=== PATIENT | male | born 1950 | race Hispanic/Latino ===

== ENCOUNTER 2017-11-21 08:57 | Emergency (ER) | payer OTHER ==
--- NOTE | 2017-11-21 10:24 | EDPHYS ---
Physician Documentation [facility] Name: Derick Marie Age: 67 yrs Sex: Male : 1950 Arrival Date: 11/21/2017 Time: 09:02 Bed 14 Private MD: ED Physician Emir Mortensen HPI: 11/21 09:19 This 67 yrs old Male presents to ER via Ambulatory with complaints of Leg Pain.cp 09:19 The patient presents with an injury, pain, that is acute. The complaints affect the cp lateral aspect of left knee. Context: The problem was sustained outdoors, resulted from the patient falling, the patient can fully bear weight, the patient is able to ambulate, without difficulty. Onset: The symptoms/episode began/occurred 2 day(s) ago. Associated signs and symptoms: Pertinent negatives calf tenderness, fever, numbness. Historical: - Allergies: 09:13 No Known Allergies; ss - PMHx: 09:13 Diabetes - IDDM; High Cholesterol; Hypertension; Myocardial infarction; ss - PSHx: 09:13 left shoulder; ss - Immunization history:: Adult Immunizations up to date. - Social history:: Smoking status: Patient/guardian denies using tobacco. ROS: 09:20 Eyes: Negative for injury, pain, redness, and discharge, ENT: Negative for injury, cp pain, and discharge. 09:20 Constitutional: Negative for body aches, chills, fever, poor PO intake. 09:20 Cardiovascular: Negative for chest pain, edema. 09:20 Respiratory: Negative for cough, shortness of breath, wheezing. 09:20 Abdomen/GI: Negative for abdominal pain. 09:20 Back: Negative for pain at rest, pain with movement. 09:20 MS/extremity: Positive for pain, of the lateral aspect of left knee, Negative for decreased range of motion, deformity. 09:20 Skin: Negative for cellulitis, rash. 09:20 Neuro: Negative for numbness, weakness. 09:20 All other systems are negative. Exam: 09:22 Head/Face: Normocephalic, atraumatic. cp 09:22 Constitutional: The patient appears in no acute distress, alert, awake, well developed, well nourished. 09:22 Eyes: Periorbital structures: appear normal, Conjunctiva: normal, no exudate, no injection, Lids and lashes: appear normal, bilaterally. 09:22 ENT: External ear(s): are unremarkable, Nose: is normal, Mouth: is normal. 09:22 Chest/axilla: Inspection: normal. 09:22 Cardiovascular: Rate: normal. 09:22 Respiratory: the patient does not display signs of respiratory distress, Respirations: normal, no use of accessory muscles, no retractions, no splinting, no tachypnea. 09:22 Abdomen/GI: Exam negative for discomfort, distension, guarding, Inspection: abdomen appears normal. 09:22 Musculoskeletal/extremity: Sensation intact. Joints: All joints are normal except the cp left knee displays lateral tenderness, Weight bearing: able to fully bear weight, Tendon exam: specific tendon testing normal through active and passive range of motion Vital Signs: 09:13 BP 124 / 74; Pulse 63; Resp 16; Temp 98.2(TE); Pulse Ox 100% on R/A; Weight 73.03 kg; ss Height 5 ft. 8 in. (172.72 cm); Pain 7/10; 09:13 Body Mass Index 24.48 (73.03 kg, 172.72 cm) ss MDM: 09:14 Patient medically screened. cp 10:22 Data reviewed: vital signs, nurses notes, radiologic studies, plain films, and as a cp result, I will discharge patient. 11/21 09:19 Order name: XRAY Knee LEFT 3 view; Complete Time: 10:55 cp 11/21 10:56 Interpretation: Report reviewed. cp 11/21 10:24 Order name: Crutches; Complete Time: 10:32 cp Administered Medications: No medications were administered Disposition: 11/21/17 10:23 Discharged to Home. Impression: Pain in left knee. - Condition is Stable. - Discharge Instructions: Elastic Bandage and RICE, Knee Pain. - Prescriptions for Naprosyn 500 mg Oral Tablet - take 1 tablet by ORAL route 2 times per day take with food; 20 tablet. - Medication Reconciliation Form, Thank You Letter, Antibiotic Education, Prescription Opioid Use form. - Follow up: Private Physician; When: 5 - 6 days; Reason: Recheck today's complaints. - Problem is new. - Symptoms are unchanged. Addendum: 11/22/2017 13:17 Co-signature as Attending Physician, Emir Mortensen MD. g s Signatures: Dispatcher [employer] Sharyn Mariano RN RN iw Marge David RN RN ss Herb Jonas PA PA cp Starr, Gregory, MD MD gs Corrections: (The following items were deleted from the chart) 11/21 10:32 10:24 Hieu wrap-joint ordered. lamar rush
--- NOTE | 2017-11-21 10:24 | ER ---
Nurse's Notes [facility] Name: Derick Marie Age: 67 yrs Sex: Male : 1950 Arrival Date: 11/21/2017 Time: 09:02 Bed 14 Private MD: Diagnosis: Pain in left knee Presentation: 11/21 09:12 Presenting complaint: Patient states: L knee pain x 2 days. Transition of care: patient ss was not received from another setting of care. Onset of symptoms was November 18, 2017. Care prior to arrival: None. 09:12 Method Of Arrival: Ambulatory ss 09:12 Acuity: TAMERA 4 ss Triage Assessment: 10:32 General: Behavior is calm, cooperative. iw Historical: - Allergies: 09:13 No Known Allergies; ss - PMHx: 09:13 Diabetes - IDDM; High Cholesterol; Hypertension; Myocardial infarction; ss - PSHx: 09:13 left shoulder; ss - Immunization history:: Adult Immunizations up to date. - Social history:: Smoking status: Patient/guardian denies using tobacco. Screenin:43 Abuse screen: Denies threats or abuse. Denies injuries from another. Nutritional iw screening: No deficits noted. Tuberculosis screening: No symptoms or risk factors identified. Fall Risk None identified. Assessment: 09:23 General: Appears in no apparent distress. comfortable. Pain: Complains of pain in iw lateral aspect of left knee. Neuro: Level of Consciousness is awake, alert, obeys commands, Oriented to person, place, time, situation, Moves all extremities. Full function. Cardiovascular: Patient's skin is warm and dry. Respiratory: Respiratory effort is even, unlabored. Derm: Skin is pink, warm \T\ dry. normal. Musculoskeletal: Range of motion: intact in all extremities, Reports pain in lateral aspect of left knee. Vital Signs: 09:13 BP 124 / 74; Pulse 63; Resp 16; Temp 98.2(TE); Pulse Ox 100% on R/A; Weight 73.03 kg; ss Height 5 ft. 8 in. (172.72 cm); Pain 7/10; 09:13 Body Mass Index 24.48 (73.03 kg, 172.72 cm) ss ED Course: 09:02 Patient arrived in ED. sb2 09:12 Triage completed. ss 09:13 Arm band placed on right wrist. ss 09:14 Page, Herb, PA is PHCP. cp 09:14 Emir Mortensen MD is Attending Physician. cp 09:14 Sharyn Pandya, RN is Primary Nurse. iw 09:23 Patient moved to radiology via wheelchair. kw1 09:43 No provider procedures requiring assistance completed. Patient did not have IV access iw during this emergency room visit. 09:47 XRAY Knee LEFT 3 view In Process Unspecified. EDMS 09:47 X-ray completed. Patient tolerated procedure well. Patient moved back from radiology. kw1 10:33 Patient has correct armband on for positive identification. iw Administered Medications: No medications were administered Outcome: 10:23 Discharge ordered by MD. cp 10:32 Discharged to home ambulatory, with crutches. iw 10:32 Condition: good 10:32 Discharge instructions given to patient, Instructed on discharge instructions, follow up and referral plans. medication usage, crutch walking, Demonstrated understanding of instructions, follow-up care, medications, crutch walking, Prescriptions given X 1. 10:33 Patient left the ED. iw Signatures: Dispatcher [employer] EDMS Sharyn Pandya, RN SHON iw Marge David RN RN Herb Rodriguez PA PA cp Maryana German kw1 Tiffany Chu sb2
--- NOTE | 2017-11-21 10:39 | RAD REPORT ---
EXAM DESCRIPTION: RAD - Knee Left 3 View - 11/21/2017 9:50 am CLINICAL HISTORY: Fall, knee pain COMPARISON: None. FINDINGS: No gross fracture deformity is seen. However, there is ill-defined lucency in the midline tibial plateau questionable for fracture. A joint effusion is present which may be indirect evidence for fracture. Patella and distal femur appear intact. Minimal medial compartment degenerative changes are present. No foreign body in the soft tissues. Findings discussed with the referring clinician 10:35 a.m.. IMPRESSION: Questionable midline tibial plateau fracture warranting further evaluation with either M R imaging or thin section CT imaging if the patient has clinical presentation for fracture. Small joint effusion is present. Degenerative changes are minimal.
== END 2017-11-21 10:33 | disposition home or self-care (01) ==
LOC: ER 08:57
DX: M25.562 Pain in left knee (principal); W18.30XA Fall on same level, unspecified, initial encounter; Y93.9 Activity, unspecified; Y92.89 Other specified places as the place of occurrence of the external cause; I10 Essential (primary) hypertension
CPT/HCPCS: 99283

== ENCOUNTER 2018-01-06 16:18 | Emergency (ER) | payer OTHER ==
[2018-01-06 17:37] LABS: Absolute Lymphocytes (CBC) 2.2 K/uL (0.7-4.9); Absolute Monocytes 0.4 K/uL (0.1-1.3); Absolute Neutrophil 2.7 K/uL (1.8-8.0); Basophils % 0.7 % (0-1.3); Eosinophils % 2.6 % (0-4.4); Hematocrit 42.2 % (39.6-49.0); Lymphocytes % 40.7 % (15.3-44.8); MCH 31.4 pg (27.0-35.0); MCV 93.1 fL (80-100); MPV 9.1 fL (7.6-11.3); Monocytes % 7.3 % (3.3-12.3); RBC Red Blood Cell Count 4.53 M/uL (4.33-5.43)
--- NOTE | 2018-01-06 17:49 | RAD REPORT ---
EXAM DESCRIPTION: CT - Stone Protocol - 01/06/2018 5:35 pm CLINICAL HISTORY: Flank pain. COMPARISON: None. TECHNIQUE: Axial images were obtained without oral or IV contrast. Lack of contrast limits solid org an and vascular assessment. The [id number] spans the entirety of the system partially obscuring uppermost abdomen and lung bases. Coronal reformatted images were obtained and reviewed. All CT scans are performed using dose optimization technique as appropriate and may include automated exposure control or mA/KV adjustment according to patient size. FINDINGS: The lower lung rojas are clear. Imaged portions of the liver and spleen show no suspicious findings on non-contrast imaging.Small sub centimeter or cyst in the right lobe liver present. Cholecystectomy clips are noted. The pancreas and adrenal glands are normal. No pathologic lymphadenopathy in the abdomen or pelvis. Several small caliceal calculi are noted in the right kidney, largest measuring 3 mm. Parapelvic cyst s are noted on the left with a punctate calculus in the superior pole. No ureter stones or hydronephr osis seen bilaterally. No bladder stones. No bowel obstruction, free air, free fluid or abscess. Normal appendix noted. No significant bony abnormality. No fracture seen. IMPRESSION: Bilateral nonobstructing nephrolithiasis as detailed. No acute finding demonstrated
[2018-01-06 18:00] LABS: Albumin 4.2 g/dL (3.2-5.5); Bilirubin Direct 0.2 mg/dL (0-0.2); Bilirubin Total 1.8 mg/dL (0.3-1.2); Protein, Total 7.2 g/dL (6.0-8.3)
[2018-01-06 18:20] LABS: Urine Blood NEGATIVE (NEG); Urine Glucose NEGATIVE (NEG); Urine Protein TRACE (NEG); Urine Specific Gravity >1.030 (1.005-1.030)
[2018-01-06] MEDS ORDERED: KETOROLAC 30 MG/ML INJ ONE (18:29)
[2018-01-06 18:34] LABS: Urine Bacteria <20 /HPF (NONE SEEN); Urine Culture Reflex Order NOT NEEDED; Urine Mucus 2+ /HPF (NONE SEEN); Urine RBC <5 /HPF (NONE SEEN)
--- NOTE | 2018-01-06 18:40 | EDPHYS ---
Physician Documentation [facility] Name: Derick Marie Age: 67 yrs Sex: Male : 1950 Arrival Date: 01/06/2018 Time: 16:21 Bed 12 Private MD: ED Physician Emir Mortensen HPI: 01/06 16:50 This 67 yrs old Male presents to ER via Ambulatory with complaints of Back cp Pain. 16:50 The patient complains of pain in the right lower lateral abdomen. cp 16:50 The pain does not radiate. cp 16:50 Onset: The symptoms/episode began/occurred yesterday. Associated signs and symptoms: cp Pertinent negatives: diarrhea, dysuria, fever, hematuria, pain radiating to the lower extremities, vomiting. Patient reports pain started after lifting heavy object yesterday. Historical: - Allergies: 16:37 No Known Allergies; lk1 - PMHx: 16:37 Myocardial infarction; Hypertension; High Cholesterol; Diabetes - IDDM; lk1 - PSHx: 16:37 left shoulder; lk1 - Immunization history:: Adult Immunizations up to date. - Social history:: Smoking status: Patient/guardian denies using tobacco. ROS: 16:55 Constitutional: Negative for body aches, chills, fever, poor PO intake. cp 16:55 Eyes: Negative for injury, pain, redness, and discharge. cp 16:55 ENT: Negative for drainage from ear(s), ear pain, sore throat, difficulty swallowing, difficulty handling secretions. 16:55 Cardiovascular: Negative for chest pain, edema, palpitations. 16:55 Respiratory: Negative for cough, shortness of breath, wheezing. 16:55 Abdomen/GI: Negative for vomiting, diarrhea, constipation, black/tarry stool, rectal bleeding. 16:55 Back: Positive for flank pain, on the right. 16:55 : Negative for urinary symptoms, testicular pain 16:55 Skin: Negative for cellulitis, rash. 16:55 All other systems are negative. Exam: 17:05 Constitutional: The patient appears in no acute distress, alert, awake, cp non-diaphoretic, non-toxic, well developed, well nourished. 17:05 Head/Face: Normocephalic, atraumatic. cp 17:05 Eyes: Periorbital structures: appear normal, Conjunctiva: normal, no exudate, no injection, Sclera: no appreciated abnormality, Lids and lashes: appear normal, bilaterally. 17:05 ENT: External ear(s): are unremarkable, Nose: is normal, Mouth: Lips: moist, Oral mucosa: moist, Posterior pharynx: is normal, airway is patent, no erythema, no exudate. 17:05 Neck: ROM/movement: is normal, is supple, without pain, no range of motions limitations, no nuchal rigidity. 17:05 Chest/axilla: Inspection: normal, Palpation: is normal, no crepitus, no tenderness. 17:05 Cardiovascular: Rate: normal, Rhythm: regular, Edema: is not appreciated, JVD: is not appreciated. 17:05 Respiratory: the patient does not display signs of respiratory distress, Respirations: normal, no use of accessory muscles, no retractions, no splinting, no tachypnea, labored breathing, is not present, Breath sounds: are clear throughout, no decreased breath sounds, no stridor, no wheezing. 17:05 Abdomen/GI: Inspection: abdomen appears normal, Bowel sounds: active, all quadrants, Palpation: soft, in all quadrants, mild abdominal tenderness, in the right lower quadrant, moderate abdominal tenderness, in the posterior aspect of right lateral abdomen, rebound tenderness, is not appreciated, voluntary guarding, is not appreciated, involuntary guarding, is not appreciated. 17:05 Back: pain, that is mild, of the right low back, ROM is normal. 17:05 Skin: cellulitis, is not appreciated, no rash present. 17:05 Neuro: Orientation: to person, place \T\ time. Mentation: lucid, able to follow commands, Motor: moves all fours, strength is normal, Sensation: no obvious gross deficits, Gait: is steady. Vital Signs: 16:37 BP 125 / 85; Pulse 70; Resp 15; Temp 97.2(TE); Pulse Ox 99% on R/A; Weight 73.48 kg; lk1 Height 5 ft. 8 in. (172.72 cm) (R); Pain 9/10; 19:08 BP 118 / 75; Pulse 62; Resp 18; Pulse Ox 99% on R/A; aj1 16:37 Body Mass Index 24.63 (73.48 kg, 172.72 cm) lk1 MDM: 16:47 Patient medically screened. cp 17:00 Differential diagnosis: nephrolithiasis, pyelonephritis, UTI, diverticulitis, cp pancreatitis, ruptured AAA, dissecting AAA. 18:37 Data reviewed: vital signs, nurses notes, lab test result(s), radiologic studies, CT cp scan. 18:37 Counseling: I had a detailed discussion with the patient and/or guardian regarding: the cp historical points, exam findings, and any diagnostic results supporting the discharge/admit diagnosis, lab results, radiology results, to return to the emergency department if symptoms worsen or persist or if there are any questions or concerns that arise at home. 05 16:47 Order name: Urine Microscopic Only; Complete Time: 18:37 cp 05/18 18:37 Interpretation: Reviewed. / 17:03 Order name: Amylase, Serum; Complete Time: 18:05 cp /18 17:03 Order name: Basic Metabolic Panel; Complete Time: 18:05 cp 18 18:05 Interpretation: Normal except: BUN 27; GFR 77. cp /18 17:03 Order name: CBC with Diff; Complete Time: 18:33 cp 0518 18:34 Interpretation: Reviewed. /18 17:03 Order name: Creatinine for Radiology; Complete Time: 18:05 cp 18 17:03 Order name: Hepatic Function; Complete Time: 18:05 cp 18 18:06 Interpretation: Normal except: BILIT 1.8. /18 16:47 Order name: Urine Dipstick-Ancillary (obtain specimen); Complete Time: 18:08 cp /18 17:03 Order name: Lipase; Complete Time: 18:05 cp /18 17:03 Order name: IV Saline Lock; Complete Time: 18:08 cp 18 17:03 Order name: Labs collected and sent; Complete Time: 18:08 cp 18 17:03 Order name: CT Stone Protocol; Complete Time: 18:05 cp 18 18:06 Interpretation: Report reviewed. cp 18 18:06 Order name: Urine Dipstick--Ancillary (enter results); Complete Time: 18:33 bd 05/18 18:33 Interpretation: Normal except: USPGR >1.030; UKET 1+. cp Administered Medications: 18:37 Not Given (Patient Refused): TORadol 60 mg IM once aj1 Disposition: 01/07 18:43 Co-signature as Attending Physician, Emir Mortensen MD. Disposition: 01/06/18 18:39 Discharged to Home. Impression: Lower abdominal pain, unspecified - Right Lower Lateral, Low back pain - Right. - Condition is Stable. - Discharge Instructions: Flank Pain, Musculoskeletal Pain. - Prescriptions for Naprosyn 500 mg Oral Tablet - take 1 tablet by ORAL route 2 times per day take with food; 20 tablet. Cyclobenzaprine 10 mg Oral Tablet - take 1 tablet by ORAL route every 8 hours As needed no driving while taking medication; 20 tablet. Tramadol 50 mg Oral Tablet - take 1 tablet by ORAL route every 8 hours as needed; 12 tablet. - Medication Reconciliation Form, Thank You Letter, Antibiotic Education, Prescription Opioid Use form. - Follow up: Private Physician; When: 2 - 3 days; Reason: Recheck today's complaints. - Problem is new. - Symptoms have improved. Signatures: Dispatcher [employer] EDMS Gregoria Rand RN RN aj1 Herb Jonas PA PA cp Kluge, Leah, RN RN lk1 Emir Mortensen MD MD Corrections: (The following items were deleted from the chart) 01/06 19:09 18:39 01/06/2018 18:39 Discharged to Home. Impression: Lower abdominal pain, aj1 unspecified - Right Lower Lateral; Low back pain - Right. Condition is Stable. Forms are Medication Reconciliation Form, Thank You Letter, Antibiotic Education, Prescription Opioid Use. Follow up: Private Physician; When: 2 - 3 days; Reason: Recheck today's complaints. Problem is new. Symptoms have improved. cp
--- NOTE | 2018-01-06 18:40 | ER ---
Nurse's Notes [facility] Name: Derick Marie Age: 67 yrs Sex: Male : 1950 Arrival Date: 01/06/2018 Time: 16:21 Bed 12 Private MD: Diagnosis: Lower abdominal pain, unspecified-Right Lower Lateral;Low back pain-Right Presentation: 01/06 16:35 Presenting complaint: Patient states: "Yesterday I picked up something heavy and this lk1 morning I did the same thing. I think I tore up my muscles in my back. It hurts under my right ribs.". Transition of care: patient was not received from another setting of care. Onset of symptoms was January 05, 2018 at 15:00. Initial Sepsis Screen: Does the patient meet any 2 criteria? No. Patient's initial sepsis screen is negative. Does the patient have a suspected source of infection? No. Patient's initial sepsis screen is negative. Care prior to arrival: None. 16:35 Method Of Arrival: Ambulatory lk1 16:35 Acuity: TAMERA 4 lk1 Triage Assessment: 16:37 General: Appears uncomfortable, Behavior is calm, cooperative, appropriate for age. lk1 Pain: Complains of pain in right mid back Pain currently is 9 out of 10 on a pain scale. Musculoskeletal: Swelling absent. Historical: - Allergies: 16:37 No Known Allergies; lk1 - PMHx: 16:37 Myocardial infarction; Hypertension; High Cholesterol; Diabetes - IDDM; lk1 - PSHx: 16:37 left shoulder; lk1 - Immunization history:: Adult Immunizations up to date. - Social history:: Smoking status: Patient/guardian denies using tobacco. Screenin:00 Abuse screen: Denies threats or abuse. Denies injuries from another. Nutritional aj1 screening: No deficits noted. Tuberculosis screening: No symptoms or risk factors identified. Fall Risk None identified. Assessment: 17:00 General: Appears in no apparent distress. uncomfortable, Behavior is calm, cooperative, aj1 appropriate for age. Pain: Complains of pain in right mid back Pain does not radiate. Pain currently is 8 out of 10 on a pain scale. Quality of pain is described as aching. Neuro: Level of Consciousness is awake, alert, obeys commands, Oriented to person, place, time, situation, Speech is normal, Facial symmetry appears normal. Cardiovascular: Patient's skin is warm and dry. Respiratory: Airway is patent Respiratory effort is even, unlabored, Respiratory pattern is regular, symmetrical. GI: No signs and/or symptoms were reported involving the gastrointestinal system. : No signs and/or symptoms were reported regarding the genitourinary system. EENT: No signs and/or symptoms were reported regarding the EENT system. Derm: Skin is pink, warm \\T\\ dry. normal. Musculoskeletal: Range of motion: intact in all extremities. 18:00 Reassessment: Patient appears in no apparent distress at this time. No changes from aj1 previously documented assessment. Patient and/or family updated on plan of care and expected duration. Pain level reassessed. Patient is alert, oriented x 3, equal unlabored respirations, skin warm/dry/pink. 18:37 Reassessment: Patient states that he does not want Toradol because he does not like aj1 shots. States he would prefer Motrin. Notified KATARINA Gómez of patient request. 19:08 Reassessment: Patient appears in no apparent distress at this time. No changes from aj1 previously documented assessment. Patient and/or family updated on plan of care and expected duration. Pain level reassessed. Patient is alert, oriented x 3, equal unlabored respirations, skin warm/dry/pink. Vital Signs: 16:37 BP 125 / 85; Pulse 70; Resp 15; Temp 97.2(TE); Pulse Ox 99% on R/A; Weight 73.48 kg; lk1 Height 5 ft. 8 in. (172.72 cm) (R); Pain 9/10; 19:08 BP 118 / 75; Pulse 62; Resp 18; Pulse Ox 99% on R/A; aj1 16:37 Body Mass Index 24.63 (73.48 kg, 172.72 cm) lk1 ED Course: 16:21 Patient arrived in ED. sb2 16:36 Triage completed. lk1 16:39 Arm band placed on right wrist. lk1 16:47 Herb Jonas PA is PHCP. cp 16:47 Emir Mortensen MD is Attending Physician. cp 16:53 Gregoria Rand, SHON is Primary Nurse. aj1 17:00 Patient has correct armband on for positive identification. Bed in low position. Call aj1 light in reach. Side rails up X 1. 17:00 No provider procedures requiring assistance completed. aj1 17:15 Inserted saline lock: 20 gauge in right antecubital area, using aseptic technique. aj1 Blood collected. 17:[address] via wheelchair. 17:35 CT Stone Protocol In Process Unspecified. EDMS 19:08 IV discontinued, intact, bleeding controlled, No redness/swelling at site. Pressure aj1 dressing applied. Administered Medications: 18:37 Not Given (Patient Refused): TORadol 60 mg IM once aj1 Outcome: 18:39 Discharge ordered by MD. cp 19:08 Discharged to home ambulatory. aj1 19:08 Condition: good 19:08 Discharge instructions given to patient, Instructed on discharge instructions, follow up and referral plans. medication usage, Demonstrated understanding of instructions, follow-up care, medications, Prescriptions given X 3. 19:09 Patient left the ED. aj1 Signatures: Dispatcher [employer] EDSC Gregoria Rand, RN RN aj1 Latesha Mosqueda Corey, KATARINA PA Naheed Dotson RN RN lk1 Tiffany Chu sb2
== END 2018-01-06 19:09 | disposition home or self-care (01) ==
LOC: ER 16:18
DX: M54.5 Low back pain (principal); I10 Essential (primary) hypertension; I25.2 Old myocardial infarction
CPT/HCPCS: 36415; 74176; 76377; 80048; 80076; 81003; 81015; 82150; 83690; 85025; 99284

== ENCOUNTER 2020-10-03 11:16 | Emergency (ER) | payer OTHER ==
[2020-10-03 12:35] LABS: Absolute Lymphocytes (CBC) 1.6 K/uL (0.7-4.9); Basophils % 0.7 % (0-1.3); Hematocrit 47.4 % (39.6-49.0); Lymphocytes % 27.7 % (15.3-44.8); MPV 9.3 fL (7.6-11.3); RBC Red Blood Cell Count 5.08 M/uL (4.33-5.43)
[2020-10-03 12:39] LABS: Protime INR 0.94
[2020-10-03 12:47] LABS: Potassium 4.2 mmol/L (3.5-5.1)
--- NOTE | 2020-10-03 12:47 | RAD REPORT ---
EXAM DESCRIPTION: CTAbdomen Pelvis W Contrast - 10/03/2020 12:28 pm CLINICAL HISTORY: Abdominal pain. HEMATURIA COMPARISON: Stone Protocol dated 10/02/2020 TECHNIQUE: Biphasic CT imaging of the abdomen and pelvis was performed with 100 ml non-ionic IV cont rast. All CT scans are performed using dose optimization technique as appropriate and may include automated exposure control or mA/KV adjustment according to patient size. FINDINGS: The lung bases are clear. The liver contains several small low-density lesions, likely representing small cysts. Cholecystectom y clips. The spleen, pancreas, adrenal glands are normal. Small calculi are present in both kidneys without hydronephrosis. Moderate prostate enlargement is seen projecting into the urinary bladder base. No bowel obstruction, free air, free fluid or abscess. Moderate stool is seen throughout the colon. T he appendix is normal. No evidence of significant lymphadenopathy. No suspicious bony findings. IMPRESSION: Small calculi are present in both kidneys without hydronephrosis. Moderate enlargement of the prostate gland projecting into the urinary bladder base.
--- NOTE | 2020-10-03 13:43 | EDPHYS ---
Physician Documentation [facility] Name: Derick Marie Age: 70 yrs Sex: Male : 1950 Arrival Date: 10/03/2020 Time: 11:18 Bed 12 Private MD: ED Physician Robert Hidalgo HPI: 10/03 17:40 This 70 yrs old Male presents to ER via Ambulatory with complaints of Blood In kb Urine. 17:40 The patient presents with urinary symptoms, hematuria. Onset: The symptoms/episode kb began/occurred 4 month(s) ago. Modifying factors: The symptoms are alleviated by nothing, the symptoms are aggravated by urinating. Associated signs and symptoms: Pertinent positives: hematuria, Pertinent negatives: abdominal pain, constipation, diarrhea, dysuria, fever, nausea, vomiting. Severity of symptoms: At their worst the symptoms were mild, in the emergency department the symptoms are unchanged. The patient has not experienced similar symptoms in the past. The patient has not recently seen a physician. Pt reports blood in urine for 3-4 months. Denies pain, dysuria, or any other symptoms. . Historical: - Allergies: 11:26 No Known Allergies; aa5 - PMHx: 11:26 Diabetes - IDDM; High Cholesterol; Hypertension; Myocardial infarction; aa5 - PSHx: 11:26 left shoulder; Cholecystectomy; aa5 - Immunization history:: Adult Immunizations unknown. - Social history:: Smoking status: Patient denies any tobacco usage or history of. ROS: 17:40 Constitutional: Negative for fever, chills, and weight loss, Cardiovascular: Negative kb for chest pain, palpitations, and edema, Respiratory: Negative for shortness of breath, cough, wheezing, and pleuritic chest pain, Abdomen/GI: Negative for abdominal pain, nausea, vomiting, diarrhea, and constipation, Back: Negative for injury and pain, MS/Extremity: Negative for injury and deformity, Skin: Negative for injury, rash, and discoloration, Neuro: Negative for headache, weakness, numbness, tingling, and seizure. 17:40 : Positive for burning with urination. Exam: 17:40 Constitutional: This is a well developed, well nourished patient who is awake, alert, kb and in no acute distress. Head/Face: Normocephalic, atraumatic. Chest/axilla: Normal chest wall appearance and motion. Nontender with no deformity. No lesions are appreciated. Cardiovascular: Regular rate and rhythm with a normal S1 and S2. No gallops, murmurs, or rubs. Normal PMI, no JVD. No pulse deficits. Respiratory: Lungs have equal breath sounds bilaterally, clear to auscultation and percussion. No rales, rhonchi or wheezes noted. No increased work of breathing, no retractions or nasal flaring. Abdomen/GI: Soft, non-tender, with normal bowel sounds. No distension or tympany. No guarding or rebound. No evidence of tenderness throughout. Skin: Warm, dry with normal turgor. Normal color with no rashes, no lesions, and no evidence of cellulitis. MS/ Extremity: Pulses equal, no cyanosis. Neurovascular intact. Full, normal range of motion. Neuro: Awake and alert, GCS 15, oriented to person, place, time, and situation. Cranial nerves II-XII grossly intact. Motor strength 5/5 in all extremities. Sensory grossly intact. Cerebellar exam normal. Normal gait. Vital Signs: 11:23 BP 139 / 90; Pulse 81; Resp 16 S; Temp 97.8(O); Pulse Ox 98% on R/A; Weight 74.84 kg aa5 (R); Height 5 ft. 8 in. (172.72 cm) (R); 11:23 Body Mass Index 25.09 (74.84 kg, 172.72 cm) aa5 MDM: 13:12 Patient medically screened. kb 13:41 Data reviewed: vital signs, nurses notes. Data interpreted: Pulse oximetry: on room air kb is 98 %. Interpretation: normal. Counseling: I had a detailed discussion with the patient and/or guardian regarding: the historical points, exam findings, and any diagnostic results supporting the discharge/admit diagnosis, lab results, radiology results, the need for outpatient follow up, a family practitioner, a urologist, to return to the emergency department if symptoms worsen or persist or if there are any questions or concerns that arise at home. 17:42 ED course: Pt educated on enlarged prostate and that he needed to follow up with kb urology for further evaluation. Verbal understanding received. . 10/03 11:32 Order name: CBC with Diff; Complete Time: 12:54 kb 10/03 11:32 Order name: Basic Metabolic Panel; Complete Time: 12:54 kb 10/03 11:32 Order name: Protime (+inr); Complete Time: 12:54 kb 10/03 11:32 Order name: Ptt, Activated; Complete Time: 12:54 kb 10/03 13:38 Order name: Urine Dipstick--Ancillary (enter results) eb 10/03 13:39 Order name: Urine Dipstick-Ancillary; Complete Time: 13:54 EDMS 10/03 11:32 Order name: Urine Dipstick-Ancillary (obtain specimen); Complete Time: 13:40 kb 10/03 11:32 Order name: CT Abd/Pelvis - IV Contrast Only; Complete Time: 12:54 kb Administered Medications: No medications were administered Disposition: 14:37 Co-signature as Attending Physician, Robert Hidalgo MD I agree with the assessment and kdr plan of care. Disposition: 10/03/20 13:42 Discharged to Home. Impression: Hematuria, Enlarged prostate. - Condition is Stable. - Discharge Instructions: Benign Prostatic Hypertrophy, Hematuria, Adult, Prostate Cancer, [id number]. - Medication Reconciliation Form, Thank You Letter, Antibiotic Education, Prescription Opioid Use form. - Follow up: Emergency Department; When: As needed; Reason: Worsening of condition. Follow up: Private Physician; When: 2 - 3 days; Reason: Recheck today's complaints, Continuance of care, Re-evaluation by your physician. Follow up: Jacky Rollins MD; When: 2 - 3 days; Reason: Recheck today's complaints. Follow up: Norm Ponce MD; When: 2 - 3 days; Reason: Recheck today's complaints. Signatures: Dispatcher [employer] EDEve Post, [employer]-C SERVIC[employer]IL[employer]-Robert Ricks MD MD [facility] Ninfa Mcdaniel RN RN aa5 Corrections: (The following items were deleted from the chart) 14:06 13:42 10/03/2020 13:42 Discharged to Home. Impression: Hematuria; Enlarged prostate. aa5 Condition is Stable. Forms are Medication Reconciliation Form, Thank You Letter, Antibiotic Education, Prescription Opioid Use. Follow up: Emergency Department; When: As needed; Reason: Worsening of condition. Follow up: Private Physician; When: 2 - 3 days; Reason: Recheck today's complaints, Continuance of care, Re-evaluation by your physician. Follow up: Jacky Rollins; When: 2 - 3 days; Reason: Recheck today's complaints. Follow up: Norm Ponce; When: 2 - 3 days; Reason: Recheck today's complaints. kb
--- NOTE | 2020-10-03 13:43 | ER ---
Nurse's Notes [facility] Name: Derick Marie Age: 70 yrs Sex: Male : 1950 Arrival Date: 10/03/2020 Time: 11:18 Bed 12 Private MD: Diagnosis: Hematuria;Enlarged prostate Presentation: 10/03 11:23 Chief complaint: Patient states: "I've been peeing blood for about 3 or 4 months now". aa5 Pt states "my doctor did x-rays yesterday but they didn't find anything". Pt c/o pain to LLQ. Coronavirus screen: Client denies travel out of the [place] in the last 14 days. At this time, the client does not indicate any symptoms associated with coronavirus-19. Ebola Screen: Patient negative for fever greater than or equal to 101.5 degrees Fahrenheit, and additional compatible Ebola Virus Disease symptoms. Initial Sepsis Screen: Does the patient meet any 2 criteria? No. Patient's initial sepsis screen is negative. Does the patient have a suspected source of infection? No. Patient's initial sepsis screen is negative. Risk Assessment: Do you want to hurt yourself or someone else? Patient reports no desire to harm self or others. Onset of symptoms was 2019. 11:23 Acuity: TAMERA 3 aa5 11:23 Method Of Arrival: Ambulatory aa5 Historical: - Allergies: 11:26 No Known Allergies; aa5 - PMHx: 11:26 Diabetes - IDDM; High Cholesterol; Hypertension; Myocardial infarction; aa5 - PSHx: 11:26 left shoulder; Cholecystectomy; aa5 - Immunization history:: Adult Immunizations unknown. - Social history:: Smoking status: Patient denies any tobacco usage or history of. Screenin:08 Abuse screen: Denies threats or abuse. Nutritional screening: No deficits noted. aa5 Tuberculosis screening: No symptoms or risk factors identified. Fall Risk None identified. Assessment: 13:08 General: Appears comfortable, Behavior is calm, cooperative. Pain: Complains of pain in aa5 left lower quadrant Pain currently is 0 out of 10 on a pain scale. Pain began "months ago" Is intermittent. Neuro: Level of Consciousness is awake, alert, obeys commands, Oriented to person, place, time, situation. Cardiovascular: Patient's skin is warm and dry. Respiratory: Airway is patent Respiratory effort is even, unlabored, Respiratory pattern is regular, symmetrical. GI: Abdomen is round non-distended, Bowel sounds present X 4 quads. Abd is soft and non tender X 4 quads. : Reports intermittent hematuria for "months". EENT: No signs and/or symptoms were reported regarding the EENT system. Derm: Skin is pink, warm \\T\\ dry. Musculoskeletal: Range of motion: intact in all extremities. 14:05 Reassessment: Patient is alert, oriented x 3, equal unlabored respirations, skin aa5 warm/dry/pink. Vital Signs: 11:23 BP 139 / 90; Pulse 81; Resp 16 S; Temp 97.8(O); Pulse Ox 98% on R/A; Weight 74.84 kg aa5 (R); Height 5 ft. 8 in. (172.72 cm) (R); 11:23 Body Mass Index 25.09 (74.84 kg, 172.72 cm) aa5 ED Course: 11:18 Patient arrived in ED. ds1 11:23 Arm band placed on. aa5 11:25 Triage completed. aa5 11:31 [facility]C [facility] kb 11:31 Robert Hidalgo MD is Attending Physician. kb 12:28 CT Abd/Pelvis - IV Contrast Only In Process Unspecified. EDMS 13:08 Ninfa Mcdaniel, RN is Primary Nurse. aa5 13:08 Patient has correct armband on for positive identification. aa5 13:08 Patient placed in an exam room. aa5 13:42 Jacky Rollins MD is Referral Physician. kb 13:42 Norm Ponce MD is Referral Physician. kb 14:04 IV discontinued, intact, bleeding controlled, No redness/swelling at site. Pressure aa5 dressing applied. 14:06 No provider procedures requiring assistance completed. aa5 Administered Medications: No medications were administered Outcome: 13:42 Discharge ordered by . kb 14:05 Discharged to home ambulatory. aa5 14:05 Condition: stable 14:05 Discharge instructions given to patient, Instructed on discharge instructions, follow up and referral plans. Demonstrated understanding of instructions, follow-up care. 14:06 Patient left the ED. aa5 Signatures: Dispatcher [employer] EDME Eve Rashid FNP-C FNP-Ckb Celia Motta ds1 Ninfa Mcdaniel, RN RN aa5
[2020-10-03 13:53] LABS: Urine Blood 2+ (NEG); Urine Glucose NEGATIVE (NEG); Urine Specific Gravity 1.015 (1.005-1.030)
[2020-10-03 13:54] LABS: Urine Protein NEGATIVE (NEG)
[2020-10-03 14:18] VITALS: BP 139/90; TEMP 97.8; O2SAT 98
== END 2020-10-03 14:06 | disposition home or self-care (01) ==
LOC: ER 11:16
DX: N40.0 Benign prostatic hyperplasia without lower urinary tract symptoms (principal); I10 Essential (primary) hypertension; I25.2 Old myocardial infarction
CPT/HCPCS: 85025; 80048; 36415; 85610; 82565; 85730; 81003; 74177; 99283; Q9967

== ENCOUNTER 2021-03-27 05:01 | Emergency (ER) | payer OTHER ==
--- NOTE | 2021-03-27 07:25 | RAD REPORT ---
EXAM DESCRIPTION: CT - C Spine Wo Con - 03/27/2021 6:50 am CLINICAL HISTORY: Neck injury status post fall with neck pain COMPARISON: None. TECHNIQUE: Computed axial tomography of the cervical spine were obtained with sagittal and coronal r econstruction images generated and reviewed. All CT scans are performed using dose optimization technique as appropriate and may include automated exposure control or mA/KV adjustment according to patient size. FINDINGS: A cervical fracture is not seen. No dislocation. A high-grade stenosis is not visualized IMPRESSION: A cervical fracture is not seen. If the patient continues have symptoms to suggest spinal cord/spinal canal pathology then MRI would b e recommended.
--- NOTE | 2021-03-27 07:30 | EDPHYS ---
Physician Documentation [facility] Name: Derick Marie Age: 70 yrs Sex: Male : 1950 Arrival Date: 03/27/2021 Time: 05:04 Bed DIS2 Private MD: ED Physician Guille Winters HPI: 03/27 07:00 This 70 yrs old Male presents to ER via Ambulatory with complaints of Neck jr8 Pain, >24Hrs Old. 07:00 Associated signs and symptoms: The patient has no apparent associated signs or jr8 symptoms. The pain does not radiate. Modifying factors: The symptoms are alleviated by remaining still, the symptoms are aggravated by movement. Severity of symptoms: At their worst the symptoms were moderate, in the emergency department the symptoms are unchanged. The patient has not experienced similar symptoms in the past. The patient has not recently seen a physician. This is a 70-year old male patient that presented to the emergency room with left lateral neck pain after sustaining a mechanical fall from his trailer while working on it 2 days ago. Patient stated that the pain continues and feels stiff. Denies any numbness or tingling. Denies hitting his head or having any loss of consciousness at that time.. Historical: - Allergies: 05:57 No Known Allergies; bb - Home Meds: 05:57 Unable to obtain [Active]; bb - PMHx: 05:57 Diabetes - NIDDM; High Cholesterol; Hypertension; Myocardial infarction; bb - Immunization history:: Adult Immunizations up to date, Client reports receiving the 2nd dose of the Covid vaccine. - Social history:: Smoking status: unknown. ROS: 07:00 Eyes: Negative for injury, pain, redness, and discharge, ENT: Negative for injury, jr8 pain, and discharge, Cardiovascular: Negative for chest pain, palpitations, and edema, Respiratory: Negative for shortness of breath, cough, wheezing, and pleuritic chest pain, Abdomen/GI: Negative for abdominal pain, nausea, vomiting, diarrhea, and constipation, Back: Negative for injury and pain, MS/Extremity: Negative for injury and deformity, Skin: Negative for injury, rash, and discoloration, Neuro: Negative for headache, weakness, numbness, tingling, and seizure. 07:00 Neck: Positive for pain with movement, pain at rest, stiffness, tenderness, of the neck. Exam: 07:00 Constitutional: This is a well developed, well nourished patient who is awake, alert, jr8 and in no acute distress. Eyes: Pupils equal round and reactive to light, extra-ocular motions intact. Lids and lashes normal. Conjunctiva and sclera are non-icteric and not injected. Cornea within normal limits. Periorbital areas with no swelling, redness, or edema. ENT: Nares patent. No nasal discharge, no septal abnormalities noted. Tympanic membranes are normal and external auditory canals are clear. Oropharynx with no redness, swelling, or masses, exudates, or evidence of obstruction, uvula midline. Mucous membranes moist. Cardiovascular: Regular rate and rhythm with a normal S1 and S2. No gallops, murmurs, or rubs. Normal PMI, no JVD. No pulse deficits. Respiratory: Lungs have equal breath sounds bilaterally, clear to auscultation and percussion. No rales, rhonchi or wheezes noted. No increased work of breathing, no retractions or nasal flaring. Abdomen/GI: Soft, non-tender, with normal bowel sounds. No distension or tympany. No guarding or rebound. No evidence of tenderness throughout. Back: No spinal tenderness. No costovertebral tenderness. Full range of motion. Skin: Warm, dry with normal turgor. Normal color with no rashes, no lesions, and no evidence of cellulitis. MS/ Extremity: Pulses equal, no cyanosis. Neurovascular intact. Full, normal range of motion. Neuro: Awake and alert, GCS 15, oriented to person, place, time, and situation. Cranial nerves II-XII grossly intact. Motor strength 5/5 in all extremities. Sensory grossly intact. Cerebellar exam normal. Normal gait. 07:00 Neck: External neck: tenderness, that is mild, of the left mid cervical area and left trapezius, C-spine: vertebral tenderness, is not appreciated, Thyroid: appears normal, Trachea: is midline with no obvious abnormalities, ROM/movement: pain, that is mild, with any movement, limited range of motion, is not appreciated, Meningeal signs: are not present, Lymph nodes: no appreciated lymphadenopathy. Vital Signs: 05:54 BP 182 / 95; Pulse 55; Resp 16 S; Temp 97.7(O); Pulse Ox 100% on R/A; Weight 74.84 kg bb (R); Height 5 ft. 8 in. (172.72 cm) (R); Pain 9/10; 07:25 BP 169 / 96; Pulse 58; Resp 16 S; Pulse Ox 99% on R/A; aa5 05:54 Body Mass Index 25.09 (74.84 kg, 172.72 cm) bb MDM: 06:19 Patient medically screened. jr8 07:28 Data reviewed: vital signs, nurses notes, radiologic studies, CT scan. Data jr8 interpreted: Pulse oximetry: on room air is 100 %. Interpretation: normal. Counseling: I had a detailed discussion with the patient and/or guardian regarding: the historical points, exam findings, and any diagnostic results supporting the discharge/admit diagnosis, radiology results, the need for outpatient follow up, a family practitioner, to return to the emergency department if symptoms worsen or persist or if there are any questions or concerns that arise at home. ED course: Discussed with patient no acute cervical fracture or other acute spinal finding or soft tissue finding of the cervical region. We will put him on anti-inflammatories and needs to follow-up with primary care in the next few days. Knows to come back if worse.. 03/27 06:17 Order name: CT C Spine; Complete Time: 07:28 jr8 Administered Medications: No medications were administered Disposition Summary: 03/27/21 07:30 Discharge Ordered Location: Home jr8 Problem: new jr8 Symptoms: have improved jr8 Condition: Stable jr8 Diagnosis - Contusion of unspecified part of neck jr8 - Sprain of joints and ligaments of other parts of neck jr8 Followup: jr8 - With: Private Physician - When: 5 - 6 days - Reason: Recheck today's complaints, Continuance of care, Re-evaluation by your physician Discharge Instructions: - Discharge Summary Sheet jr8 - Neck Contusion jr8 Forms: - Medication Reconciliation Form jr8 - Thank You Letter jr8 - Antibiotic Education jr8 - Prescription Opioid Use jr8 Prescriptions: - meloxicam 15 mg Oral tablet - take 1 tablet by ORAL route once daily As needed; 5 tablet; Refills: 0, Product jr8 Selection Permitted Signatures: Dispatcher [employer] EDDorothy Strauss RN RN Matthew Verdugo PA PA jr8 Corrections: (The following items were deleted from the chart) 05:57 05:57 PMHx: Diabetes - IDDM; bb bb
--- NOTE | 2021-03-27 07:30 | ER ---
Nurse's Notes [facility] Name: Derick Marie Age: 70 yrs Sex: Male : 1950 Arrival Date: 03/27/2021 Time: 05:04 Bed DIS2 Private MD: Diagnosis: Contusion of unspecified part of neck;Sprain of joints and ligaments of other parts of neck Presentation: 03/27 05:54 Chief complaint: Patient states: he tripped and fell Tuesday over his trailer denies bb LOC but now is having left sided neck pain 9/10 no numbness or tingling. Coronavirus screen: At this time, the client does not indicate any symptoms associated with coronavirus-19. Ebola Screen: No symptoms or risks identified at this time. Initial Sepsis Screen: Does the patient meet any 2 criteria? No. Patient's initial sepsis screen is negative. Does the patient have a suspected source of infection? No. Patient's initial sepsis screen is negative. Risk Assessment: Do you want to hurt yourself or someone else? Patient reports no desire to harm self or others. Onset of symptoms was March 24, 2021. 05:54 Method Of Arrival: Ambulatory bb 05:54 Acuity: TAMERA 3 bb Triage Assessment: 05:57 General: Appears in no apparent distress. uncomfortable, Behavior is calm, cooperative. bb Pain: Complains of pain in neck Pain currently is 9 out of 10 on a pain scale. Neuro: Level of Consciousness is awake, alert, obeys commands, Oriented to person, place, time, situation. Cardiovascular: Capillary refill < 3 seconds Patient's skin is warm and dry. Respiratory: Respiratory effort is even, unlabored. GI: No signs and/or symptoms were reported involving the gastrointestinal system. Derm: Skin is pink, warm \T\ dry. Musculoskeletal: Capillary refill < 3 seconds, Reports pain in neck. Historical: - Allergies: 05:57 No Known Allergies; bb - Home Meds: 05:57 Unable to obtain [Active]; bb - PMHx: 05:57 Diabetes - NIDDM; High Cholesterol; Hypertension; Myocardial infarction; bb - Immunization history:: Adult Immunizations up to date, Client reports receiving the 2nd dose of the Covid vaccine. - Social history:: Smoking status: unknown. Screenin:25 Abuse screen: Denies threats or abuse. Nutritional screening: No deficits noted. bb Tuberculosis screening: No symptoms or risk factors identified. Fall Risk None identified. Assessment: 06:25 Reassessment: No changes from previously documented assessment. Patient is alert, bb oriented x 3, equal unlabored respirations, skin warm/dry/pink. Neuro: Level of Consciousness is awake, alert, obeys commands, Oriented to person, place, time, situation. 07:33 Reassessment: Patient is alert, oriented x 3, equal unlabored respirations, skin aa5 warm/dry/pink. Vital Signs: 05:54 BP 182 / 95; Pulse 55; Resp 16 S; Temp 97.7(O); Pulse Ox 100% on R/A; Weight 74.84 kg bb (R); Height 5 ft. 8 in. (172.72 cm) (R); Pain 9/10; 07:25 BP 169 / 96; Pulse 58; Resp 16 S; Pulse Ox 99% on R/A; aa5 05:54 Body Mass Index 25.09 (74.84 kg, 172.72 cm) ED Course: 05:04 Patient arrived in ED. wm 05:57 Triage completed. bb 05:57 Arm band placed on Patient placed in waiting room, Patient notified of wait time. bb 06:19 Matthew Grider PA is PHCP. jr8 06:19 Guille Winters MD is Attending Physician. jr8 06:25 Patient has correct armband on for positive identification. bb 06:50 CT C Spine In Process Unspecified. EDNE 07:33 Patient did not have IV access during this emergency room visit. aa5 07:33 No provider procedures requiring assistance completed. aa5 Administered Medications: No medications were administered Outcome: 07:30 Discharge ordered by . jr8 07:33 Discharged to home ambulatory. aa5 07:33 Condition: stable 07:33 Discharge instructions given to patient, Instructed on discharge instructions, follow up and referral plans. medication usage, Demonstrated understanding of instructions, follow-up care, medications, Prescriptions given X 1. 07:35 Patient left the ED. aa5 Signatures: Dis[facility] Dorothy Osborne RN RN bb Ninfa Mcdaniel RN RN aa5 Matthew Grider PA PA 8 Celsa Powers Corrections: (The following items were deleted from the chart) 05:57 05:57 PMHx: Diabetes - IDDM; bb bb 19:14 07:35 Ninfa Mcdaniel, SHON is Primary Nurse. aa5 aa5
[2021-03-27 07:42] VITALS: BP 182/95; TEMP 97.7; O2SAT 100
== END 2021-03-27 07:35 | disposition home or self-care (01) ==
LOC: ER 05:01
DX: S13.8XXA Sprain of joints and ligaments of other parts of neck, initial encounter (principal); I10 Essential (primary) hypertension; W17.89XA Other fall from one level to another, initial encounter
CPT/HCPCS: 72125; 99283

== ENCOUNTER 2025-03-30 10:55 | Emergency (ER) | payer OTHER ==
--- OUTSIDE RECORDS SUMMARY | 2025-03-30 11:00 | XMS REPORT | Continuity of Care Document ---
Author Name Unknown Address [address] [place] [address] [facility] Address [address] [place] [address] Care Team Providers Care Accountancy Professor Name Role Phone CHANDANA MARQUEZ Primary Care Physicia n Unavailable RADIOLOGY Attending Clinician Unavailable Poonam, Ang - Db Attending Clinician Unavailable Jennifer Reece Attending Clinician [phone] KANE CARLISLE Attending Clinician Don Oscar Attending Clinician Unavailable Danyell-Mbayo_A_AH Attending Clinician Unavailable CHANDANA MARQUEZ Admitting Clinician KANE Bynum Admitting Clinician Don Oscar Admitting Clinician Unavailable Johnathanayo_A_AH Admitting Clinician Unavailable Payers Payer Name Policy Type Policy Number Effective Date Expirati on Date Source [employer] MEDICARE ADVANTAGE HMO [id number] 2023 00:00:00 [employer] (MEDICARE REPLACEMENT HMO) [id number] 2020 00:00:00 [facility] ([facility]PLAC[facility]/[place] GE - HMO) [id number] 7523-01-01 00:00:00 Problems Condition Name Condition Details Condition Category Status Onset Date Resolution Date Last Treatment Date Treating Clinician Comments Source Other chest pain Other chest pain Disease Active 04-06 00:00: 00 [facility] HYPERCHOLE STEROLEMIA HYPERCHOLE STEROLEMIA Disease Active 04-06 00:00: 00 [facility] HYPERTENSI ON HYPERTENSI ON Disease Active 8-16 00:00: 00 [facility] Allergies, Adverse Reactions, Alerts Allergy Name Allergy Type Status Severity Reaction(s) Onset Date Inactive Date Treating Clinician Comments Source NO KNOWN ALLERGIE S Drug Class Active [facility] Social History Social Habit Start Date Stop Date Quantity Comments Source [facility] Alcoholic [facility] intake 2024-11-02 00:00:00 2024-11-02 00:00:00 0 /d [facility] Tobacco use and exposure 2024-10-29 00:00:00 2024-10-29 00:00:00 Smokeless tobacco non-user [facility] History of Social function 2024-10-29 00:00:00 2024-10-29 00:00:00 [facility] Sex assigned at 1950 00:00:00 1950 00:00:00 [facility] Smoking Status Start Date Stop Date Source Never smoked tobacco [facility] Medications Ordered Medication Name Filled Medication Name Start Date Stop Date Current Medication? Ordering Clinician Indication Dosage Frequency Signature (SIG) Comments Components Source SULFAMETHOX AZOLE-TRIME THOPRIM ORAL 11-01 11:04: 01 Yes Take by mouth. [facility] semaglutide (OZEMPIC) 0.25 mg or 0.5 mg(2 mg/1.5 mL) PnIj 09-03 00:00: 00 Yes .25mg inject 0.25 mg under the skin weekly. [facility] dapaglifloz in propanediol (FARXIGA) 10 mg tablet 09-03 00:00: 00 Yes 10mg Take 1 tablet by mouth in the morning. [facility] diclofenac 75 mg EC tablet 12-01 00:00: 00 Yes 75mg Take 1 tablet by mouth 2 (two) times daily with meals. [facility] naproxen 500 mg tablet 11-21 00:00: 00 Yes TK 1 T PO BID WITH FOOD. [facility] metformin ER 500 mg 24 hr tablet 10-20 00:00: 00 Yes TK 2 TS PO BID WITH MEALS FOR DIABETES. [facility] ASPIRIN 325 MG ORAL TBEC 04-07 00:00: 00 Yes 1 Tab Oral DAILY [facility] METOPROLOL TARTRATE 50 MG ORAL TAB 04-07 00:00: 00 Yes 0.25 Tab Oral Daily [facility] NITROGLYCER IN 0.4 MG SL SUBL 04-07 00:00: 00 Yes 1 Tab SL Q5MIN PRN [facility] PANTOPRAZOL E 40 MG ORAL TBEC 04-07 00:00: 00 Yes 1 Tab Oral DAILY [facility] ISOSORBIDE DINITRATE 10 MG ORAL TAB 04-07 00:00: 00 Yes Take one tablet three times a day [facility] ATORVASTATI N 40 MG ORAL TAB 04-07 00:00: 00 Yes Take one tablet QHS [facility] Procedures Procedure Date / Time Performed Performing Clinicia n Source XR LUMBAR SPINE 4 VW 2025-02-18 18:56:51 Steven Ross [facility] XR HIPS 2 VW LEFT 2025-02-18 18:56:51 Mignon walker [facility] Encounters Start Date/Time End Date/Time Encounter Type Admission Type Attending Clinicians Care Facility Care Department Encounter ID Source 2025-02-18 13:28:49 2025-02-18 23:59:00 Hospital Encounter R RADIOLOGY [facility] 1..[id number] [facility] 2025-02-05 10:00:00 2025-02-05 10:15:00 Strategic Account Executive Visit R Lab, Jennifer Peralta, Terry Dao [facility] 1..[id number] [facility] 2024-11-01 08:05:00 2024-11-01 10:40:00 Outpatient R KANE CARLISLE [facility] OPH [id number] [facility] Results Test Description Test Time Test Comments Results Resul t Comments Source XR Lumbar spine 4 vw 2025-02-18 22:36:21 XR LUMBAR SPINE 4 VW HISTORY: left hip pain TECHNIQUE: AP and lateral flexion/exten kailash views of the lumbar spine wereobtained. COMPARISON: None. [facility] Notes Date/Time Note Provider Source 2025-02-05 10:00:00 Images from the original note were not included. Venipuncture collection performed by clean technique on the left anticubitus. Total of 1 attempts were made. Slight pressure and a bandage/dressing were applied to the site(s). The patient experienced no complications. The following specimens were processed according to instructions and sent to [facility] laboratories per lab order on 02/05/2025 : LT BLUE SST 1 RED LAV 2 PPT DK GREEN (LiHep) DK GREEN (SodH) HARRELL DK BLUE (K2) DK BLUE (S) ACD Blood Culture NIPT/NTD Patient has been identified by and name and was provided with cup, antiseptic towelette, and clean catch instructions. 3 urine specimen(s) sent. Unpreserved 2 Urine Culture 1 Aptima tube Other urine [facility] Zimory
[2025-03-30] MEDS ORDERED: TETRACAINE HCL 0.5% 4ML OPTH ONE (12:09)
[2025-03-30] MEDS ORDERED: FLUORESCEIN SODIUM 1 MG/WRAP ONE (12:09)
--- NOTE | 2025-03-30 13:32 | EDPHYS ---
Physician Documentation [facility] Name: Derick Marie Age: 74 yrs Sex: Male : 1950 Arrival Date: 03/30/2025 Time: 10:55 Bed 10 Private MD: ED Physician Parish Mendoza HPI: 03/30 16:39 This 74 yrs old Male presents to ER via Ambulatory with complaints of Foreign dr5 Body In Eye. 16:39 caused by debris. Onset: The symptoms/episode began/occurred acutely. Patient is a dr5 74-year-old male with history of cataract, hypertension, hyperlipidemia, diabetes coming in with right eye pain after possibly having something hit him in the eye. Patient reports he does not know what could have got in his eye. Patient reports he rubbed his eye and has been hurting since. Patient denies visual disturbances but reports tearing and redness of right eye.. Historical: - Allergies: 11:16 No Known Allergies; jl7 - Home Meds: 11:16 aspirin 81 mg Oral chew 1 tab once daily [Active]; metformin 1 Oral tab 1 tab 2 times jl7 per day [Active]; - PMHx: 11:16 Cataract; Hypertension; High Cholesterol; Diabetes - NIDDM; jl7 - Immunization history:: Adult Immunizations up to date. - Infectious Disease History:: Denies. - Social history:: Smoking status: Patient denies any tobacco usage or history of. ROS: 16:40 Constitutional: as per hpi dr5 Exam: 16:40 Constitutional: This is a well developed, well nourished patient who is awake, alert, dr5 and in no acute distress. Head/Face: Normocephalic, atraumatic. 16:58 ENT: Nares patent. No nasal discharge, no septal abnormalities noted. Tympanic dr5 membranes are normal and external auditory canals are clear. Oropharynx with no redness, swelling, or masses, exudates, or evidence of obstruction, uvula midline. Mucous membranes moist. Neck: Trachea midline, no thyromegaly or masses palpated, and no cervical lymphadenopathy. Supple, full range of motion without nuchal rigidity, or vertebral point tenderness. No Meningismus. Chest/axilla: Normal chest wall appearance and motion. Nontender with no deformity. No lesions are appreciated. Cardiovascular: Regular rate and rhythm with a normal S1 and S2. Normal PMI, no JVD. No pulse deficits. Respiratory: Lungs have equal breath sounds bilaterally, clear to auscultation. No rales, rhonchi or wheezes noted. No increased work of breathing, no retractions or nasal flaring. Back: No spinal tenderness. No costovertebral tenderness. Full range of motion. Skin: Warm, dry with normal turgor. Normal color with no rashes, no lesions, and no evidence of cellulitis. MS/ Extremity: Pulses equal, no cyanosis. Neurovascular intact. Full, normal range of motion. Neuro: Awake and alert, GCS 15, oriented to person, place, time, and situation. Cranial nerves II-XII grossly intact. Motor strength 5/5 in all extremities. Sensory grossly intact. Cerebellar exam normal. Normal gait. 16:58 Eyes: Periorbital structures: appear normal, no acute changes, Pupils: no acute changes, equal, round, and reactive to light and accomodation, Extraocular movements: intact throughout, Conjunctiva: exudate, in the right eye, Corneas: are normal, Sclera: no appreciated abnormality, a slit lamp exam was employed for the exam, 16:58 ENT: External ear(s): are unremarkable, Ear canal(s): are normal, Vital Signs: 11:13 BP 152 / 92; Pulse 63; Resp 18; Temp 97.1; Pulse Ox 100% on R/A; Weight 73.03 kg; jl7 Height 5 ft. 8 in. ; Pain 9/10; 11:13 Body Mass Index 24.48 (73.03 kg, 172.72 cm) jl7 11:13 Pain Scale: Adult jl7 Procedures: 16:58 Eye Exam: Tetracaine and fluorescein used for eye exam. Corneal abrasion noted at 3 dr5 o'clock position of right eye. No other foreign body noted. Negative Diann sign. EOMs intact. No other abnormality noted. MDM: 11:48 Medical Screening Exam initiated dr5 16:58 Differential diagnosis: Corneal abrasion of right eye. Corneal ulcer of right eye. dr5 Foreign body in right eye. Data reviewed: vital signs, nurses notes. Consideration of Admission/Observation Escalation of care including admission/observation considered. Admission considered patient had positive Diann sign. I considered the following discharge prescriptions or medication management in the emergency department Medications were administered in the Emergency Department. See MAR. Care significantly affected by the following chronic conditions: Diabetes, Hypertension, Hyperlipidemia. Care significantly affected by the following Social Determinants of Health: Poor access to healthcare and/or lack of insurance, Poor access to transportation, Problems related to employment. Counseling: I had a detailed discussion with the patient and/or guardian regarding the historical points, exam findings, and any diagnostic results supporting the discharge/admit diagnosis, the presence of at least one elevated blood pressure reading (>120/80) during this emergency department visit, the need for outpatient follow up, for definitive care, an opthalmologist, to return to the emergency department if symptoms worsen or persist or if there are any questions or concerns that arise at home. Medication response: Tetracaine. Response to treatment: the patient's symptoms have resolved after treatment, the patient's condition has returned to base line. Special discussion: I have referred the patient to see his PCP for further evaluation of high blood pressure. I discussed with the patient/guardian in detail that at this point there is no indication for admission to the hospital. It is understood, however, that if the symptoms persist or worsen the patient needs to return immediately for re-evaluation. Based on the history and exam findings, there is no indication for further emergent testing or inpatient evaluation. I discussed with the patient/guardian the need to see the opthamologist for further evaluation of the symptoms. ED course: Corneal abrasion noted on exam. Patient reports his symptoms have resolved after tetracaine. Will give patient IV antibiotics for his eye. Recommended patient follow-up with his doctor on Tuesday. Patient reports he can get into his eye doctor on Tuesday. All question answered. Strict ER precautions given.. 03/30 11:48 Order name: Fluoresene Opth strip; Complete Time: 12:18 dr5 Administered Medications: No medications were administered Disposition: 17:03 Co-signature as Attending Physician, Parish Mendoza I agree with the assessment ci and plan of care. I reviewed the patient's care provided by the Advanced Practice Provider and agree with the diagnosis and treatment plan. Disposition Summary: 03/30/25 13:31 Discharge Ordered Notes: Location: Home dr5 Condition: Stable dr5 Diagnosis - Injury of conjunctiva and corneal abrasion without foreign body, right eye dr5 Followup: dr5 - With: Emergency Department - When: As needed - Reason: Worsening of condition Followup: dr5 - With: Casper Florence MD - When: 1 - 2 days - Reason: Recheck today's complaints, Continuance of care, Re-evaluation by your physician Discharge Instructions: - Discharge Summary Sheet dr5 - Corneal Abrasion dr5 Forms: - Medication Reconciliation Form dr5 - Antibiotic Education dr5 - Patient Portal Instructions dr5 - Leadership Thank You Letter dr5 Prescriptions: - Ocuflox 0.3 % Ophthalmic drops - instill 2 drops OPHTHALMIC route every 6 hours for 7 days; 30 milliliter; dr5 Refills: 0, Product Selection Permitted Signatures: Kenney Jules, RN RN jl7 IheonunekwuParish Dustin, CONCRETE LABORER-C CONCRETE LABORER-Cdr5 Corrections: (The following items were deleted from the chart) 11:18 11:16 PMHx: Myocardial infarction; jl7 jl7
--- NOTE | 2025-03-30 13:32 | ER ---
Nurse's Notes [facility] Name: Derick Marie Age: 74 yrs Sex: Male : 1950 Arrival Date: 03/30/2025 Time: 10:55 Bed 10 Private MD: Diagnosis: Injury of conjunctiva and corneal abrasion without foreign body, right eye Presentation: 03/30 11:13 Chief complaint: Patient states: c/o R eye pain started this AM. Coronavirus screen: At [facility] this time, the client does not indicate any symptoms associated with coronavirus-19. Ebola Screen: No symptoms or risks identified at this time. Initial Sepsis Screen: Does the patient meet any 2 criteria? No. Patient's initial sepsis screen is negative. Does the patient have a suspected source of infection? No. Patient's initial sepsis screen is negative. Risk Assessment: Do you want to hurt yourself or someone else? Patient reports no desire to harm self or others. Onset of symptoms was March 30, 2025 at 08:00. 11:13 Method Of Arrival: Ambulatory [facility] 11:13 Acuity: TAMERA 4 jl7 Triage Assessment: 11:16 General: Appears in no apparent distress. uncomfortable, Behavior is calm, cooperative. jl7 Pain: Complains of pain in right eye Pain currently is 9 out of 10 on a pain scale. Quality of pain is described as. Historical: - Allergies: 11:16 No Known Allergies; jl7 - Home Meds: 11:16 aspirin 81 mg Oral chew 1 tab once daily [Active]; metformin 1 Oral tab 1 tab 2 times jl7 per day [Active]; - PMHx: 11:16 Cataract; Hypertension; High Cholesterol; Diabetes - NIDDM; jl7 - Immunization history:: Adult Immunizations up to date. - Infectious Disease History:: Denies. - Social history:: Smoking status: Patient denies any tobacco usage or history of. Vital Signs: 11:13 BP 152 / 92; Pulse 63; Resp 18; Temp 97.1; Pulse Ox 100% on R/A; Weight 73.03 kg; jl7 Height 5 ft. 8 in. ; Pain 9/10; 11:13 Body Mass Index 24.48 (73.03 kg, 172.72 cm) [facility] 11:13 Pain Scale: Adult [facility] ED Course: 11:00 Patient arrived in ED. gl 11:14 Parish Mendoza is Attending Physician. ci 11:16 Triage completed. jl7 11:19 Arm band placed on left wrist. jl7 11:48 Alan Hernández FNP-C is PHCP. dr5 11:48 Parish Mendoza is Attending Physician. dr5 12:18 Kenney Jules RN is Primary Nurse. jl7 13:30 Casper Florence MD is Referral Physician. dr5 Administered Medications: No medications were administered Outcome: 13:31 Discharge ordered by . dr5 14:16 Patient left the ED. ci Signatures: Kenney Jules RN RN [facility] Parish Mendoza ci Alan Hernández FNP-C FORENSIC ARTIST-Cdr5 Maegan Soriano, Reg Reg gl Corrections: (The following items were deleted from the chart) 11:18 11:16 [facility]: [facility] 11:[facility] 11:13 Acuity: TAMERA 2 [facility]
[2025-03-30 14:20] VITALS: BP 152/92; TEMP 97.1; O2SAT 100
== END 2025-03-30 14:16 | disposition home or self-care (01) ==
LOC: ER 10:55
DX: S05.01XA Injury of conjunctiva and corneal abrasion without foreign body, right eye, initial encounter (principal)
CPT/HCPCS: 99281